=== PATIENT | female | born 1970 | race Caucasian/White ===

== ENCOUNTER → 2019-03-05 | Outpatient (REF) ==
--- NOTE | 2019-03-05 15:34 | REP ---
Clinical: Pain and disability. Technique: AP, lateral, coned-down views of the lumbosacral spine. Findings: Alignment and lordosis maintained. No acute fracture / compression injury or subluxation. Mild age-related changes include subtle increase sclerosis and minimal disc space narrowing at L4-5 and L5-S1. Impression: Mild degenerative changes at the L4-5 and L5-S1 levels. Electronically Signed by Liam Gutierres MD 03/05/2019 03:26 P
== END ==
LOC: M SMT 14:29
PROVIDERS: ATTEND Internal Medicine
DX: M51.36 Other intervertebral disc degeneration, lumbar region (principal)